=== PATIENT | female | born 1960 | race Caucasian/White ===

== ENCOUNTER → 2016-07-15 | Outpatient (CLI) | payer BC ==
--- NOTE | ~2016-07-15 | CST ---
Cardiac Perfusion Imaging Demographics Patient Name DIANA Bennett Gender Female Patient Number [id number] Race Visit Number [id number] Ethnicity [employer] ID Room Number Accession Number [id number] Height 62 inches Date of 1960 Weight 205 pounds Age 56 year(s) BSA 1.93 m Referring Physician Jaswant Chaudhary BMI 37.49 kg/m Interpreting [facility] Date of study 07/15/2016 Physician Jermaine Carpenter MD Supervising MD/MLP Jermaine GARRISON Technologist Flash Marino, [facility] Ordering Physician Fina Ann retread technician Stress ECG Reading [facility] Nurse Eric Ann Physician Jermaine Muñoz The procedure was explained in detail to the patient. Risks, complications and alternative treatments were reviewed. Written consent was obtained. Medications Reviewed with Patient prior to Procedure. Procedure Procedure Type: Nuclear Stress Test:Pharmacological, Lexiscan Procedure Start time: 07/15/2016 08:00 Indications: Abnormal rest ECG and pre-op. Risk Factors The patient risk factors include:treated hypertension and family history of premature CAD. Conclusions Summary Perfusion Images: The overall quality of the study is good. Left ventricular cavity is noted to be normal on the stress and rest studies. There is no evidence of abnormal lung activity. The right ventricle is not visualized and cannot be assessed. Stress SPECT images demonstrate homogenous tracer distribution throughout the myocardium. Rest SPECT images demonstrate homogenous tracer distribution throughout the myocardium. Gated SPECT imaging reveals normal myocardial thickening and wall motion. The left ventricular ejection fraction was calculated to be 76%. Impression ECG portion of stress test is clinically negative for ischemia by diagnostic criteria. Myocardial perfusion imaging is normal. Overall left ventricular systolic function was normal without regional wall motion abnormalities. There are no previous studies for comparison. Stress Protocols Resting ECG Normal sinus rhythm. Nonspecific ST segment changes. Resting HR:61 bpm Resting BP:134/84 mmHg Stress Protocol:Pharmacologic Predicted HR: 163 bpm Test duration: 06:00 min Reason for termination:Infusion complete ECG Findings No ECG changes suggestive of ischemia. Arrhythmias No rhythm abnormality. Symptoms No symptoms with Lexiscan infusion. Complications Procedure complication: None. Stress Interpretation Appropriate hemodynamic response to Lexiscan. No significant ST-T wave changes with Lexiscan. ECG portion is negative for ischemia by diagnostic criteria. Imaging Results Summed scores - Summed stress score: 0 - Summed rest score: 0 - Summed difference score: 0 Stress ejection Ejection fraction:75 % EDV :96 ml ESV :24 ml Stroke volume :72 ml LV mass :115 gr Imaging Protocols Rest Stress Isotope:Tc99m Myoview IV Isotope: Tc99m Myoview IV Isotope dose:10.7 mCi Isotope dose:32.1 mCi Date:07/15/2016 06:30 Date:07/15/2016 08:05 Technique: SPECT Technique: Gated Supine SPECT Supine Scan Time:30 minutes post injection Scan Time:15-30 minutes post injection Procedure Medications - Regadenoson (Lexiscan) 0.4 mg IV over 10-15 sec. I.V. 0.4 mg. Medications administered per verbal order and read back to physician prior to administration. Medical History Admission Data Admission date: 07/15/2016 Admission Time: 06:42 Hospital Status: Outpatient. Signatures
== END | disposition home or self-care (01) ==
LOC: CARD 06:42
DX: Z01.810 Encounter for preprocedural cardiovascular examination (principal); R94.31 Abnormal electrocardiogram [ECG] [EKG]